=== PATIENT | female | born 1955 | race Caucasian/White ===

== ENCOUNTER 2020-09-21 10:08 | Outpatient (CLI) | payer BC, SELFPAY ==
--- NOTE | ~2020-09-21 | CT_ITS ---
EXAMINATION: CT soft tissue neck w con EXAM DATE: 09/21/2020 10:46 INDICATION: Lymphadenopathy in left anterior neck. TECHNIQUE: Spiral CT of the neck was performed following intravenous injection of 75 mL Omnipaque 350 . Axial, coronal and sagittal images were reviewed. The dose-length product (DLP) for this examinat ion was 245.09 mGy-cm. The exposure was tailored according to patient size (auto mA exposure control ), and iterative reconstruction (ASIR) was used as additional dose reduction technique. There is no prior study for comparison. FINDINGS: There is an externally placed marker left lateral aspect of the neck. No pathologically enl arged lymph nodes or mass deep to this. Lower down in the left medial supraclavicular region there is a lymph node measuring 8 x 10 mm, upper limits of normal in size. This is the largest lymph node selena ntified. The thyroid gland is unremarkable. The submandibular and parotid glands are symmetric. The superi or mediastinum is unremarkable. The airway is unremarkable. Parapharyngeal and pre-glottic fat pl anes are preserved. Carotid arteries widely patent. The orbits are unremarkable. Visualized sinu ses and mastoid air cells are well aerated. Small amount of apical postinfectious residua. Moderat e disc disease at C5-6. Moderate left facet arthropathy C3-4 and C4-5. Hemangioma within the 3 verteb ral body. IMPRESSION: Left supraclavicular lymph node upper limits of normal in size. No pathologically enlarg ed lymph nodes. Reviewed, dictated and finalized at location A. IMPRESSION: Left supraclavicular lymph node upper limits of normal in size. No pathologically enlarged lymph nodes.
[2020-09-21 10:35] LABS: Estimated Glomerular Filt Rate > 60
== END 2020-09-21 10:09 | disposition home or self-care (01) ==
PROVIDERS: PCP Family Medicine Adolescent Medicine; Visit Provider Family Medicine Adolescent Medicine
DX: R59.0 Localized enlarged lymph nodes (principal)
CPT/HCPCS: 70491; Q9967

== ENCOUNTER 2021-06-12 15:42 | Emergency (ER) | payer BC, SELFPAY ==
--- NOTE | 2021-06-12 15:44 | ED.URI ---
HPI - URI/Sore Throat General Chief Complaint: Upper Respiratory Infection Stated Complaint: Congestion,Sore Throat Time Seen by Provider: 06/12/21 15:56 Source: patient and RN notes reviewed Mode of arrival: ambulatory Limitations: no limitations History of Present Illness HPI Narrative: 65-year-old female presents with concern for runny nose, nasal congestion, sore throat, and sneezing. She reports she has been vaccinated for Covid. She reports exposure to family members with cold symptoms, none of them have been diagnosed with Covid. She is concerned for Covid. She denies body aches, chills, sweats, nausea, vomiting, diarrhea, loss of taste and smell. MD elicited complaint: sore throat and nasal congestion Related Data Home Medications Medication Instructions Recorded Confirmed rosuvastatin mg 06/12/21 Allergies Allergy/AdvReac Type Severity Reaction Status Date / Time No Known Allergies Allergy Unknown Verified 11/11/16 10:50 Review of Systems Review of Systems: CONSTITUTIONAL: Denies malaise, chills, sweats, or fever. EYES: Denies visual changes, redness, or discharge. ENT: Reports rhinorrhea, congestion, sneezing, sore throat. Denies sinus pain, otalgia and CARDIOVASCULAR: Denies chest pain, palpitations, or edema. RESPIRATORY: Denies cough. Denies dyspnea. GASTROINTESTINAL: Denies abdominal pain, nausea, vomiting, diarrhea SKIN: Denies rash or itching. MUSCULOSKELETAL: Denies myalgia. NEUROLOGIC: Denies headache. All systems reviewed & are unremarkable except as noted in HPI and below PMFSH Comments At time of signature, agree with nursing past medical, surgical, social and family history. There is no relevant family history pertinent to the presenting complaint Exam Narrative: GENERAL: Well-appearing, well-nourished, and in no acute distress. HEAD: Normocephalic EYES: PERRLA, conjunctivae clear ENT: Nares clear, turbinates clear discharge. Mucous membranes moist. TM pearly gifford with dull light reflex bilaterally; no tragal tenderness. Oropharynx not erythematous without lesions. Tonsils not enlarged and without exudate, no drooling, no hoarseness, no trismus, uvula midline. NECK: Supple. No lymphadenopathy CHEST: Clear to auscultation, breath sounds equal. No wheezing, rhonchi, rales, or stridor. No respiratory distress, speaks in full sentences. HEART: Regular rate and rhythm. No murmur heard. SKIN: Warm, dry, no rash. NEURO: Alert and oriented x3. PSYCH: Normal mood and affect Course Course Emergency Course: Patient is aware of diagnosis, understands and agrees to treatment plan. Anticipatory guidance given. Patient agrees to follow-up as directed and is aware of reasons to seek care at the emergency department. Portions of this record may have been created with voice recognition software Vital Signs Vital signs: Reviewed. MDM - URI/Sore Throat MDM Narrative Medical decision making narrative: Differential diagnosis considered: Osborne virus, strep pharyngitis, allergic rhinitis, upper respiratory tract infection, sinusitis, rhinosinusitis, nasopharyngitis. viral pharyngitis, otitis media, otitis externa, pneumonia, bronchitis, viral cough syndrome, viral syndrome, and influenza. Exam findings show no acute concerns or changes; patient is non-toxic appearing and is in no distress. Patient is appropriate for outpatient treatment and follow-up. Lab Data Attestation: I reviewed the patient's lab results. Critical Care Time Critical Care Time Critical Care Time: No Discharge Plan Discharge Clinical Impression: Upper respiratory infection Qualifiers: URI type: unspecified viral URI Qualified Code(s): J06.9 - Acute upper respiratory infection, unspecified Patient Disposition: Home, Self-Care Condition: Stable Instructions: Upper Respiratory Infection (ED) Additional Instructions: Your rapid Covid test is negative. A rapid Covid test may have a false negative. If you develop new symptoms
[2021-06-12 15:50] VITALS: BP 117/88; PULSE 71; RESP 16; TEMP 37.1; O2SAT 100
== END 2021-06-12 16:28 | disposition home or self-care (01) ==
PROVIDERS: Emergency Provider Nurse Practitioner; PCP Family Medicine Adolescent Medicine
DX: J06.9 Acute upper respiratory infection, unspecified (principal)
CPT/HCPCS: 99213; G0463

== ENCOUNTER 2021-10-28 10:01 | Emergency (ER) | payer MEDICARE, SELFPAY ==
[2021-10-28 10:26] VITALS: BP 117/69; PULSE 71; RESP 16; TEMP 37; O2SAT 99
--- NOTE | 2021-10-28 10:44 | ED.GENADULT ---
HPI - General Adult General Chief complaint: Upper Respiratory Infection Stated complaint: khanh,low grade fever Source: patient Mode of arrival: ambulatory Limitations: no limitations History of Present Illness HPI narrative: Patient presents for evaluation of sinus symptoms. One week ago she developed sinus congestion, clear drainage and fever. Few days prior to that time she had spent time with her granddaughter who had similar symptoms. Two days ago she lost (her) voice . She states in the past 24 hr she has developed a thick mucopurulent discharge from her nares. She reports bilateral frontal and maxillary sinus pressure. No chills, nausea, vomiting, cough, SOB, diarrhea, sore throat or otalgia. She was taking zyrtec and tylenol but ran out of zyrtec. She does not smoke. She has received COVID vaccinations and booster x 1. No additional complaints or concerns. Related Data Allergies Allergy/AdvReac Type Severity Reaction Status Date / Time No Known Allergies Allergy Unknown Verified 10/28/21 10:26 Review of Systems Review of Systems: CONSTITUTIONAL: Reports fever, chills, or sweats. EYES: Denies visual changes, redness, or discharge. ENT: Reports sinus congestion, thick mucopurulent discharge from nares, bilateral frontal and maxillary sinus pressure CARDIOVASCULAR: Denies chest pain, palpitations, or edema. RESPIRATORY: Denies cough or dyspnea. GASTROINTESTINAL: Denies abdominal pain, nausea, vomiting, or diarrhea. GENITOURINARY: Denies dysuria or hematuria. SKIN: Denies rash or itching. MUSCULOSKELETAL: Denies back pain, joint pain, or myalgia. NEUROLOGIC: Denies headache, numbness, dizziness, or weakness. PSYCHIATRIC: Denies anxiety or depression. FORMERLY [facility] Past Medical History Medical History History of breast cancer Hyperlipidemia Surgical History Surgical History History of lumpectomy Family History Family History Mother Renal failure Father Heart disease Diabetes mellitus Social History Social History Smoking status: Never smoker Substance use: never Living arrangements: with family Gender identity (if verbalized by the patient): Female Spiritual care concerns: No Exam Narrative: GENERAL: Well-appearing, well-nourished, and in no acute distress. HEAD: Normocephalic, atraumatic. EYES: PERRLA and EOMI. ENT: Nares clear, no rhinorrhea or epistaxis. Mucous membranes moist. Oropharynx without tonsillar hypertrophy exudate or other lesions. Bilateral frontal and maxillary sinus tenderness. Bilateral TMs pearly gifford nonbulging. NECK: Supple. No adenopathy or masses. No carotid bruits or JVD CHEST: Clear to auscultation. No respiratory distress. No wheezes rales or rhonchi HEART: Regular rate and rhythm. No murmur heard. Normal peripheral pulses. ABDOMEN: Soft, nontender, nondistended, normal active bowel sounds. EXTREMITIES: Normal range of motion. No edema. SKIN: Warm, dry, no rash. NEURO: No focal deficits. Alert and oriented x3. PSYCH: Normal mood and affect. Course Course Emergency Course: This is a 66-year-old female who presented with complaints of fever, mucopurulent discharge from her nares which is progressively worsening from baseline symptoms of clear discharge. She meets criteria for ABRS based on presence of fever, duration of time with which she has been symptomatic, and presence of mucopurulent discharge. Will dc with augmentin. She has taken this before and tolerated well. Sudafed and flonase may help. She should follow up outpatient for further evaluation and treatment and return for worsening symptoms. Pt in agreement with plan of care. Level of Care: Express Care Visit Vital Signs Vital signs: Vital Signs Temperat
== END 2021-10-28 10:48 | disposition home or self-care (01) ==
PROVIDERS: Emergency Provider Nurse Practitioner; PCP Family Medicine Adolescent Medicine
DX: J32.9 Chronic sinusitis, unspecified (principal); B96.89 Other specified bacterial agents as the cause of diseases classified elsewhere; E78.5 Hyperlipidemia, unspecified; Z85.3 Personal history of malignant neoplasm of breast
CPT/HCPCS: 99213; G0463

== ENCOUNTER 2021-11-10 10:02 | Emergency (ER) | payer MEDICARE, SELFPAY ==
--- NOTE | ~2021-11-10 | XR_ITS ---
EXAMINATION: XR chest 2V DATE: 11/10/2021 10:38 INDICATION: 4 days of cough. TECHNIQUE: PA and lateral views of the chest were obtained. COMPARISON: None FINDINGS: The lungs are clear with no focal airspace opacities, pulmonary edema, pleural effusion or pneumothor ax. The cardiomediastinal silhouette is normal. Postoperative change of prior left breast lumpectomy and axillary lymph node dissection with asymmetric decreased size of the left breast and several surg ical clips at the left axilla. Mild thoracic spondylosis. IMPRESSION: 1. No acute cardiopulmonary disease. Reviewed, dictated and finalized at location A.
[2021-11-10 10:08] VITALS: BP 132/88; PULSE 87; RESP 18; TEMP 36.6; O2SAT 100
--- NOTE | 2021-11-10 10:25 | ED.GENADULT ---
HPI - General Adult General Chief complaint: Upper Respiratory Infection Stated complaint: fever,congestion Source: patient Mode of arrival: ambulatory Limitations: no limitations History of Present Illness HPI narrative: Patient presents for evaluation of respiratory symptoms. I saw her here on 10/28/2021 and diagnosed her with ABRS. She received a script for augmentin which she took as directed. Nine days ago she developed a rash and diarrhea. She called her PCP and her medication was changed from augmentin to levaquin that day. Five days ago she felt as though her symptoms were getting better. Three days ago she developed a fever, productive cough of yellow sputum and clear rhinorrhea. No nausea, vomiting, diarrhea. She has received both doses of her COVID vaccination and booster. She did not receive a flu shot this season. Related Data Allergies Allergy/AdvReac Type Severity Reaction Status Date / Time amoxicillin [From Augmentin] Allergy Rash Verified 11/10/21 10:13 clavulanic acid Allergy Rash Verified 11/10/21 10:13 [From Augmentin] Penicillins Allergy Hives Verified 11/10/21 10:14 Review of Systems Review of Systems: CONSTITUTIONAL: Reports fever. Denies chills, or sweats. EYES: Denies visual changes, redness, or discharge. ENT: reports rhinorrhea and scratchy throat . Denies otalgia CARDIOVASCULAR: Denies chest pain, palpitations, or edema. RESPIRATORY: Reports productive cough of yellow sputum. Denies SOB GASTROINTESTINAL: Denies abdominal pain, nausea, vomiting, or diarrhea. GENITOURINARY: Denies dysuria or hematuria. SKIN: Denies rash or itching. MUSCULOSKELETAL: Denies back pain, joint pain, or myalgia. NEUROLOGIC: Denies headache, numbness, dizziness, or weakness. PSYCHIATRIC: Denies anxiety or depression. COUNT INCLUDES THE [facility] Past Medical History Medical History History of breast cancer Hyperlipidemia Surgical History Surgical History History of lumpectomy Family History Family History Mother Renal failure Father Heart disease Diabetes mellitus Social History Social History Smoking status: Never smoker Substance use: never Gender identity (if verbalized by the patient): Female Spiritual care concerns: No Exam Narrative: GENERAL: Well-appearing, well-nourished, and in no acute distress. HEAD: Normocephalic, atraumatic. EYES: PERRLA and EOMI. ENT: Nares clear, no rhinorrhea or epistaxis. Mucous membranes moist. Oropharynx without tonsillar hypertrophy exudate or other lesions. Bilateral TMs pearly gifford nonbulging NECK: Supple. No adenopathy or masses. No carotid bruits or JVD CHEST: Clear to auscultation. No respiratory distress. No wheezes rales or rhonchi HEART: Regular rate and rhythm. No murmur heard. Normal peripheral pulses. ABDOMEN: Soft, nontender, nondistended, normal active bowel sounds. EXTREMITIES: Normal range of motion. No edema. SKIN: Warm, dry, no rash. NEURO: No focal deficits. Alert and oriented x3. PSYCH: Normal mood and affect. Course Course Emergency Course: This is a 66-year-old female who presented with complaints of cough and fever after recently being treated for ABRS. Influenza, COVID, strep are negative. Chest x-ray negative. Exam is consistent with acute viral syndrome. She may benefit from sycn-ynu-[id number] agents and I provided her a list of medications which may assist with her symptoms. She should follow-up outpatient for further evaluation and treatment return for worsening symptoms. Patient agreed with plan of care. Level of Care: Express Care Visit Vital Signs Vital signs: Vital Signs Temperature 36.6 C 11/10/21 10:08 Pulse Rate 87 11/10/21 10:08 Respiratory Rate 18 11/10/21 10:08 Bl
== END 2021-11-10 11:11 | disposition home or self-care (01) ==
PROVIDERS: Emergency Provider Nurse Practitioner
DX: B34.9 Viral infection, unspecified (principal); Z20.822 Contact with and (suspected) exposure to COVID-19; E78.5 Hyperlipidemia, unspecified; Z85.3 Personal history of malignant neoplasm of breast
CPT/HCPCS: 71046; 87081; 87426; 87804; 87880; 99213; C9803; G0463

== ENCOUNTER 2024-03-27 07:34 | Outpatient (CLI) | payer MEDICARE, SELFPAY ==
--- NOTE | ~2024-03-27 | XR_ITS ---
EXAMINATION: [id number] DATE: 03/27/2024 07:52 INDICATION: Right chest wall pain post fall TECHNIQUE: A frontal inspiratory view of the chest and 3 views of the right ribs were obtained. COMPARISON: 11/10/2021 FINDINGS: No rib fractures identified. Lungs remain clear with no focal airspace opacities, pulmonary edema, pl eural effusion or pneumothorax. Cardiomediastinal silhouette is normal. Moderate right glenohumeral o steoarthritis. IMPRESSION: 1. No rib fracture or acute cardiopulmonary disease. Reviewed, dictated and finalized at location A.
== END 2024-03-27 07:35 | disposition home or self-care (01) ==
PROVIDERS: PCP Family Medicine Adolescent Medicine; Visit Provider Family Medicine Adolescent Medicine
DX: R07.89 Other chest pain (principal); W19.XXXA Unspecified fall, initial encounter
CPT/HCPCS: 71101

== ENCOUNTER 2024-05-08 17:50 | Emergency (ER) | payer MEDICARE, SELFPAY ==
--- NOTE | ~2024-05-08 | XR_ITS ---
EXAMINATION: XR chest 2V Exam Date/Time: 05/08/2024 18:33 FUNERAL ARRANGEMENT DIRECTOR HISTORY: syncopal episode Comparison: 11/10/2021. RESULT: Lines, tubes, and devices: Left axillary clips. Lungs and pleura: Clear. Cardiomediastinal silhouette: Stable. Other: No acute osseous or upper abdominal finding. Status post left lumpectomy. IMPRESSION: No acute cardiopulmonary process. Reviewed, dictated and finalized at location K. RAL ARRANGEMENT DIRECTOR
--- NOTE | ~2024-05-08 | CT_ITS ---
EXAMINATION: CT abdomen pelvis w con DATE: 05/08/2024 20:45 INDICATION: R CVA tenderness, R lower rib tenderness, syncope TECHNIQUE: Computed tomography (CT) of the abdomen and pelvis was performed with 100 mL Omnipaque-350 intravenous contrast. Automated exposure control and iterative reconstruction technique were employe d. The dose-length product was 178.86 mGy-cm. COMPARISON: None. FINDINGS: Lower thorax: Unremarkable Liver: Normal. Biliary/Gallbladder: Gallbladder is normal. No bile duct dilation. Pancreas: No mass or duct dilation. Spleen: Normal. Adrenals:No mass. Kidneys: No suspicious mass, obstructing stone, or hydronephrosis. GI tract: Mild distal esophageal and gastric wall edema. No small or large bowel dilation. Normal starr endix. Mesentery/Peritoneum: No ascites, mass, or free air. Retroperitoneum: No mass. Pelvis: Pelvic organs are within normal limits. Soft Tissues: Soft tissues and body wall unremarkable. Bones: No acute osseous finding. IMPRESSION: Mild esophagitis/gastritis. Reviewed, dictated and finalized at location K. ING TOOL SUPERVISOR IMPRESSION: Mild esophagitis/gastritis.
--- NOTE | 2024-05-08 18:07 | ECG_ITS ---
Test Date: 2024-05-08 18:31:40 Measurements Intervals [place] Rate: 74 P: 75 [place]: 161 QRS: 28 QRSD: 99 T: 49 QT: 374 QTc: 417 Interpretive Statements SINUS RHYTHM POSSIBLE LEFT ATRIAL ENLARGEMENT BASELINE ARTIFACT- I, II, III, AVR, AVL, AVF, V3 BORDERLINE ECG No previous ECG available for comparison Electronically Signed On 05-08-2024 20:48:40 GRIEVANCE COORDINATOR by Emiliano Pagan D.O.
[2024-05-08 18:10] VITALS: BP 131/72; PULSE 74; RESP 14; TEMP 36.9; O2SAT 99
[2024-05-08 18:38] LABS: Basophils Percent Auto 0.2 % (0.2-1.2); Eosinophils Absolute Auto 0.1 K/mm3 (0-0.3); Eosinophils Percent Auto 0.8 % (0-4.4); Hematocrit 41.5 % (37.0-47.0); Hemoglobin 13.7 g/dL (12.0-15.0); Immature Granulocyte Absolute 0.05 K/mm3 (0.00-0.031); Immature Granulocyte Percent A 0.3 % (0-0.5); Lymphocytes Absolute Auto 9.27 K/mm3 (0.9-3.2); Lymphocytes Percent Auto 57.8 % (18.3-44.2); Mean Corpuscular Hemoglobin 31.4 pg (26-34); Mean Platelet Volume 9.6 fl (7.4-10.4); Monocytes Absolute Auto 0.7 K/mm3 (0.1-0.6); Monocytes Percent Auto 4.5 % (2.6-8.5); Neutrophils Absolute Auto 5.8 K/mm3 (1.3-6.7); Neutrophils Percent Auto 36.4 % (45.5-73.1); Nucleated Red Blood Cells Perc 0.1 % (0.0-0.2); Platelet Count Result 261 k/mm3 (150-375); Red Blood Count 4.37 M/mm3 (4.2-5.4); Red Cell Distribution Width 12.3 % (11.5-14.5)
[2024-05-08 18:47] LABS: Alanine Aminotransferase 27 U/L (6-35); Albumin Level 4.9 g/dL (3.5-5.1); Alkaline Phosphatase 75 U/L (38-126); Anion Gap 7 mmol/L (4-12); Aspartate Amino Transferase 33 U/L (14-36); Bilirubin,Total 0.5 mg/dL (0.2-1.3); Blood Urea Nitrogen 16 mg/dL (7-17); Calcium 9.8 mg/dL (8.4-10.2); Carbon Dioxide 33 mmol/L (22-30); Chloride 98 mmol/L (98-107); Estimated CRCL calculation 69 ml/min; Estimated Glomerular Filt Rate > 60; Glucose 122 mg/dL (65-110); Potassium 4.1 mmol/L (3.4-5.0); Sodium 138 mmol/L (137-145)
[2024-05-08 19:03] VITALS: BP 117/66; PULSE 74
[2024-05-08 19:04] VITALS: BP 125/74; PULSE 80
[2024-05-08 19:05] VITALS: BP 128/84; PULSE 84
--- NOTE | 2024-05-08 19:14 | ED.DIZZY ---
HPI - Dizziness General Chief Complaint: Syncope Stated Complaint: syncopal episode Time Seen by Provider: 05/08/24 18:43 Source: patient Mode of arrival: ambulatory Limitations: no limitations History of Present Illness HPI Narrative: This is a 68-year-old female who presents to the ED for chief complaint of syncopal episode that occurred while at religious this evening around 1700. Patient reports that she was standing during religious and started to feel flushed and dizzy. Reports that she felt very hot and felt like she might pass out. The next thing she knew she was waking up on the religious pew with people surrounding her. This took a few seconds for her to come to. They report that she did not fall or hit her head. She does report that she is having right flank/right rib pain following this syncopal event but no other sites of pain. States that she does not feel dizzy anymore. States that she has had syncopal episodes like this before with heat exhaustion. Denies for previous cardiac history. Denies recent illness, fevers, chills, abdominal pain, nausea, vomiting, abnormal bleeding. Denies preceding chest pain, palpitations, shortness of breath or cough. Related Data Home Medications Medication Instructions Recorded Confirmed qyiafcow-ntm-MG 200 mcg-vit K 100 cap PO 10/16/22 02/18/24 mcg-lycop 500 [id number] capsule (Daily Multivitamin) Allergies Allergy/AdvReac Type Severity Reaction Status Date / Time amoxicillin [From Augmentin] Allergy Rash Verified 05/08/24 18:33 clavulanic acid Allergy Rash Verified 05/08/24 18:33 [From Augmentin] Penicillins Allergy Hives Verified 05/08/24 18:33 Review of Systems Review of Systems: All systems as dictated in HPI [facility] Past Medical History Medical History (Updated 05/09/24 @ 00:00 by Jennyfer Jones) History of breast cancer (2010) Surgical History Surgical History (Updated 10/15/22 @ 06:09 by Rigoberto Jc MD) History of lumpectomy (2010) Family History Family History Mother Renal failure Father Heart disease Diabetes mellitus Social History Social History Smoking status: Never smoker Substance use: never Living arrangements: with family Gender identity (if verbalized by the patient): Female Spiritual care concerns: No Exam Narrative: GENERAL: Well-appearing, well-nourished, and in no acute distress. HEAD: Normocephalic, atraumatic. EYES: PERRLA and EOMI. ENT: Nares clear, no rhinorrhea or epistaxis. Mucous membranes moist. Oropharynx without tonsillar hypertrophy exudate or other lesions. NECK: Supple. No adenopathy or masses. CHEST: Chest wall tenderness over the right posterior ribs. No respiratory distress. Clear to auscultation. No wheezes rales or rhonchi HEART: Regular rate and rhythm. No murmur heard. Normal peripheral pulses. ABDOMEN: Right flank tenderness. . Negative flank flank tenderness. Soft, nontender, nondistended, normal active bowel sounds. MSK: Normal range of motion. No edema. SKIN: Warm, dry, no rash. NEURO: Alert and oriented x4. No focal deficits. PSYCH: Normal mood and affect. Course Vital Signs Vital signs: Vital Signs Temperature 98.4 F 05/08/24 18:10 Pulse Rate 74 05/08/24 18:10 Respiratory Rate 14 05/08/24 18:10 Blood Pressure 131/72 05/08/24 18:10 Pulse Oximetry 99 05/08/24 18:10 Oxygen Delivery Room Air 05/08/24 18:10 Temperature 98.2 F 05/08/24 21:20 Pulse Rate 79 05/08/24 21:20 Respiratory Rate 20 05/08/24 21:20 Blood Pressure 132/75 05/08/24 21:20 Pulse Oximetry 98 05/08/24 21:20 Oxygen Delivery Room Air 05/08/24 18:10 MDM - Dizziness MDM Narrative Medical decision making narrative: This is a 68 yo female who presents to the ED for chief complaint of syncopal episode and subsequent right flank pain. Vitals are normal. Exam shows right flank tenderness as above. She is otherwise well-appearing on exam. Orthostatic vitals are normal. Lab work shows elevated white count of 16.0. CMP unremarkable overall. Urinalysis concerning 2+ blood, 2+ leuk esterase, 21-50 rbc's and 21-50 wbc's. Suspect acute urinary tract infection and ordering CT scan to rule out stone//rib fracture CT abdomen and pelvis with IV contrast shows mild esophagitis/gastritis but no other acute findings. Patient was given Rocephin, fluids and Toradol here in the ED. She is well-appearing on re-evaluation. Stable for discharge for reassuring treatment of UTI. Rx for cefdinir given. Suspect syncopal episode today was vasovagal event with prolonged standing Patient will be discharged in stable condition. Supportive measures discussed and return precautions given. Patient is understanding and agreeable with plan for discharge with PCP follow-up. Lab Data 05/08/24 18:34 05/08/24 18:34 Labs: Lab Results 05/08/24 05/08/24 Range/Units 18:34 19:23 WBC 16.0 H (4.5-10.0) K/mm3 RBC 4.37 (4.2-5.4) M/mm3 Hgb 13.7 (12.0-15.0) g/dL Hct 41.5 (37.0-47.0) % MCV 95.0 (80-100) fl MCH 31.4 (26-34) pg MCHC 33.0 (32-36) g/dl RDW 12.3 (11.5-14.5) % Plt Count 261 (150-375) k/mm3 MPV 9.6 (7.4-10.4) fl Immature Gran % (Auto) 0.3 (0-0.5) % Neut % (Auto) 36.4 L (45.5-73.1) % Lymph % (Auto) 57.8 H (18.3-44.2) % [place] % (Auto) 4.5 (2.6-8.5) % Eos % (Auto) 0.8 (0-4.4) % Baso % (Auto) 0.2 (0.2-1.2) % Lymph # (Auto) 9.27 H (0.9-3.2) K/mm3 [place] # (Auto) 0.7 H (0.1-0.6) K/mm3 Eos # (Auto) 0.1 (0-0.3) K/mm3 Baso # (Auto) 0.0 (0.0-0.1) K/mm3 Abs Immat Gran (auto) 0.05 H (0.00-0.031) K/mm3 Absolute Neuts (auto) 5.8 (1.3-6.7) K/mm3 Absolute Nucleated RBC 0.020 H (0.0-0.012) K/mm3 Nucleated RBC % 0.1 (0.0-0.2) % Sodium 138 (137-145) mmol/L Potassium 4.1 (3.4-5.0) mmol/L Chloride 98 (98-107) mmol/L Carbon Dioxide 33 H (22-30) mmol/L Anion Gap 7 (4-12) mmol/L BUN 16 (7-17) mg/dL Creatinine 0.50 L (0.7-1.0) mg/dL Estim Creat Clear Calc 69 ml/min Estimated GFR > 60 (59 - ) Glucose 122 H (65-110) mg/dL Calcium 9.8 (8.4-10.2) mg/dL Total Bilirubin 0.5 (0.2-1.3) mg/dL AST 33 (14-36) U/L ALT 27 (6-35) U/L Alkaline Phosphatase 75 (38-126) U/L Total Protein 8.0 (6.3-8.2) g/dL Albumin 4.9 (3.5-5.1) g/dL Urine Color Yellow (Yellow) Urine Appearance Turbid H (Clear) Urine pH 7.0 (5.0-9.0) Ur Specific [place] 1.023 (1.001-1.035) Urine Protein Trace (Negative) mg/dL Urine Glucose (UA) Negative (Negative) mg/dL Urine Ketones Trace H (Negative) mg/dL Ur Blood (Man) 2+ H (Negative) Urine Nitrate Negative (Negative) Urine Bilirubin Negative (Negative) Urine Urobilinogen 1.0 (<2.0) mg/dL Add Ur Microanalysis Reviewed Leukocyte Esterase Rfl 2+ H (Negative) BRIGID/UL Urine RBC 21-50 H (0-2) /hpf Urine WBC 21-50 H (0-3) /hpf Ur Squamous Epith Cells Occasional (Few) /hpf Amorphous Sediment Few H (None) Urine Bacteria None seen /hpf Urine Casts >20 Urine Mucus Present /lpf Discharge Plan Discharge Clinical Impression: Acute UTI, Vasovagal syncope Patient Disposition: Home, Self-Care Condition: Stable Instructions: Antibiotic Form Additional Instructions: Your exam and imaging today do show evidence of UTI. There is mild dehydration as well. Make sure they stay well hydrated. Take antibiotics as prescribed follow-up closely with your doctor on this. If you have any new or worsening symptoms please return to the ER for further evaluation. Prescriptions: New cefdinir 300 mg capsule 300 mg PO Q12H 7 Days Qty: 14 0RF No Action Daily Multivitamin 200-100-500 mcg capsule PO rosuvastatin 20 mg tablet See Rx Instructions .ROUTE .COMPLEX Qty: 90 0RF Dose Instruction: Take 1 tablet by mouth once daily Rx Instructions: Take 1 tablet by mouth once daily Follow-up/Referrals: Rigoberto Jc MD [Primary Care Provider] - Time of Disposition: 21:12
[2024-05-08] MEDS: KETOROLAC 15 MG/ML VIAL (*BKC) IV PUSH (19:24)
[2024-05-08] MEDS: SODIUM CHLORIDE 0.9% IV 1,000 ML 999 ML IV CONT (19:24)
[2024-05-08 19:28] VITALS: BP 126/75; PULSE 72; RESP 14; O2SAT 100
[2024-05-08 19:51] LABS: Add Urine Microscopic? YES; Appearance Urine Turbid (Clear); Bacteria Urine None Seen /hpf; Bilirubin Urine Negative (Negative); Blood Urine 2+ (Negative); Color Urine Yellow (Yellow); Glucose Urine UA Negative (Negative); Ketones Urine Trace mg/dL (Negative); Leukocyte Esterase Ur 2+ LEU/UL (Negative); Mucus Urine Present /lpf; Need Manual Microscopic Reviewed; Nitrate Urine Negative (Negative); Non Pathogenic Casts >20; Protein Urine Trace mg/dL (Negative); RBC Urine 21-50 /hpf (0-2); Specific Grav Ur 1.023 (1.001-1.035); Squamous Epithelial Cell Urine Occasional /hpf (Few); WBC Urine 21-50 /hpf (0-3)
[2024-05-08 19:54] LABS: Amorphous Sediment Urine Few
[2024-05-08 21:20] VITALS: BP 132/75; PULSE 79; RESP 20; TEMP 36.8; O2SAT 98
== END 2024-05-08 21:30 | disposition home or self-care (01) ==
PROVIDERS: Emergency Medicine; Emergency Provider Physician Assistant; PCP Family Medicine Adolescent Medicine
DX: N39.0 Urinary tract infection, site not specified (principal); R55 Syncope and collapse; Z85.3 Personal history of malignant neoplasm of breast; Z79.899 Other long term (current) drug therapy; R94.31 Abnormal electrocardiogram [ECG] [EKG]; K20.90 Esophagitis, unspecified without bleeding; K29.70 Gastritis, unspecified, without bleeding
CPT/HCPCS: 36415; 71046; 74177; 80053; 81001; 85025; 87086; 93005; 96361; 96365; 96375; 99284; J0696; J1885; J7030; Q9967

== ENCOUNTER 2024-08-12 15:46 | Outpatient (CLI) | payer MEDICARE, SELFPAY ==
--- NOTE | ~2024-08-12 | MM_ITS ---
EXAMINATION: MM screening james BI w agueda HISTORY: Screening TECHNIQUE: Craniocaudal and mediolateral oblique 3-D tomosynthesis images were obtained and synthetic 2-D images were generated. CAD analysis was submitted and interpreted. COMPARISON: Comparison to multiple prior studies sequentially, with oldest reviewed study dated 10/10. BREAST PARENCHYMAL COMPOSITION: Dense: The breasts are heterogeneously dense, which may obscure small masses FINDINGS: There is no evidence of suspicious mass, calcification, or architectural distortion to sugg est malignancy in either breast. There has been no suspicious interval change. IMPRESSION: 1. No mammographic evidence of malignancy. 2. Recommend routine screening mammography in one year. BI-RADS Category 1: Negative Reviewed, dictated and finalized at location B. [employer] SERV[employer]IST
== END 2024-08-12 15:47 | disposition home or self-care (01) ==
PROVIDERS: PCP Family Medicine Adolescent Medicine; Visit Provider Obstetrics & Gynecology
DX: Z12.31 Encounter for screening mammogram for malignant neoplasm of breast (principal)
CPT/HCPCS: 77063; 77067

== ENCOUNTER 2024-12-27 09:42 | Outpatient (CLI) | payer MEDICARE, SELFPAY ==
--- NOTE | ~2024-12-27 | US_ITS ---
US soft tissue lower back 12/27/2024 09:54 Indication: Localized swelling with palpable area in the left lower back for 10 years Procedure: High-resolution Limited ultrasound of the left lower back in the area of palpable concern Comparison: No prior studies for comparison. Findings: In the area of palpable concern there is an oval parallel oriented hypoechoic mass with hor izontal striations and minimal internal vascularity. There is no significant posterior features. This mass measures 6.4 x 6.1 x 2.4 cm, most compatible with benign lipoma. Sarcomatous degeneration less favored. Impression: 1: Probable benign lipoma in the area palpable concern. Sarcomatous degeneration less favored. Consid er excisional biopsy as clinically warranted. Reviewed, dictated and finalized at location A. Impression: 1: Probable benign lipoma in the area palpable concern. Sarcomatous degeneratio n less favored. Consider excisional biopsy as clinically warranted.
== END 2024-12-27 09:43 | disposition home or self-care (01) ==
PROVIDERS: PCP Surgery; Visit Provider Nurse Practitioner Family
DX: R22.2 Localized swelling, mass and lump, trunk (principal); M54.50 Low back pain, unspecified
CPT/HCPCS: 76705

== ENCOUNTER 2025-01-11 13:33 | Emergency (ER) | payer MEDICARE, SELFPAY ==
--- NOTE | ~2025-01-11 | XR_ITS ---
EXAM/ PROCEDURE: XR hand LT min 3V - 01/11/2025 13:53 CDT HISTORY: 69 years old Female with fall yesterday, pain, swelling metacarpals Lt hand COMPARISON: None available TECHNIQUE: Three view(s) FINDINGS/ IMPRESSION: There are no fractures or dislocations.Joint space narrowing, subchondral sclerosis, subchondral cyst formation and osteophyte formation, compatible with gdkb-av-hcqwfavw osteoarthritis. Reviewed, dictated and finalized at location A.
[2025-01-11 13:47] VITALS: BP 122/70; PULSE 68; RESP 16; TEMP 36.5; O2SAT 100
--- NOTE | 2025-01-11 15:12 | ED_ITS ---
HPI - Extremity Injury (Upper) General Chief Complaint: Extremity Injury, Upper Stated Complaint: Fall, Left Hand Injury Time Seen by Provider: 01/11/25 14:00 Source: patient and RN notes reviewed Mode of arrival: ambulatory Limitations: no limitations History of Present Illness HPI narrative: 69-year-old female presents Express Care complaining of left hand injury. Patient says she had a ground level fall yesterday. Patient was walking on the side of her rule that the country and she was walking to the side of the road to get out of the way of another vehicle when she tripped in the mud and fell with her left arm hyperextending injuring her left hand. Patient is here head, loss of conscious, neck pain, back pain, any other injuries. 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 Patient reports swelling and pain to the middle of her left hand. Patient has been trying ice without any relief. Related Data Home Medications ?Medication ?Instructions ?Recorded ?Confirmed ?Last Taken ?Type cmeesdcd-qfi-FA 200 mcg-vit K 100 cap PO 10/16/22 01/07/25 Unknown History mcg-lycop 500 [id number]-[id number]-K05 capsule (Daily Multivitamin) Allergies Allergy/AdvReac Type Severity Reaction Status Date / Time amoxicillin (From Augmentin) Allergy Rash Verified 01/11/25 13:50 clavulanic acid (From Allergy Rash Verified 01/11/25 13:50 Augmentin) Penicillins Allergy Hives Verified 01/11/25 13:50 Review of Systems Review of Systems: CONSTITUTIONAL: Denies fever, chills, or sweats. EYES: Denies visual changes, redness, or discharge. ENT: Denies rhinorrhea, congestion, sore throat, or otalgia. CARDIOVASCULAR: Denies chest pain, palpitations, or edema. RESPIRATORY: Denies cough or dyspnea. GASTROINTESTINAL: Denies abdominal pain, nausea, vomiting, or diarrhea. GENITOURINARY: Denies dysuria or hematuria. SKIN: Denies rash, wound, or itching. MUSCULOSKELETAL: Denies back pain, joint pain, or myalgia. Positive for left hand injury and swelling NEUROLOGIC: Denies headache, numbness, or weakness. PSYCHIATRIC: Denies anxiety or depression. All other systems reviewed are negative, except as documented in HPI. [facility] Past Medical History Medical History History of breast cancer (2010) Surgical History Surgical History History of lumpectomy (2010) Family History Family History Mother Renal failure Father Heart disease Diabetes mellitus Social History Social History Smoking status: Never smoker Substance use: never Do You Feel Safe in your Home?: Yes Lack of Transportation: No Lack of Food: Never True Current Housing: I Have Housing Concerned About Future Housing: No Difficulty Paying Gas/Electric Bills: No Difficulty Paying for Meds: No Currently Unemployed: No Education: Decline to Answer Difficulty w/ Childcare or Family Care: No Living arrangements: with family Gender identity (if verbalized by the patient): Female Spiritual care concerns: No Comments At the time of my signature, I reviewed and agree with the nursing past medical, surgical, social, and family history. There is no relevant family history pertinent to the patient complaint. Exam Narrative: GENERAL: This is a well-nourished, well-developed adult, in no apparent distress. They are non ill-appearing, nontoxic appearing. HEAD: normocephalic, atraumatic. EYES: Sclera clear/white. Vision is grossly intact. Conjunctiva normal. Extraocular movement intact. EARS: External ears normal Hearing grossly intact. NOSE: External nose normal THROAT: Mucous membranes moist NECK: Neck supple CARDIOVASCULAR: Regular rate and rhythm RESPIRATORY: Respiratory rate normal, respiratory effort nonlabored, no respiratory distress NEURO: awake, alert, and oriented to person, place and time. There were no obvious focal neurologic abnormalities. EXTREMITIES: Left hand: Fingers are normal. No obvious deformity,. There is swelling and mild bruising dorsal medial hand. Tenderness to palpation to the area of swelling. Normal wrist flexion, extension, pronation, and supination. Patient is able to wiggle her fingers Capillary refill less than 3 seconds. Left radial Pulse 2 +palpable. Normal sensation. Neurovascular status intact distal injury. Patient down make a fist, stop sign, okay sign, and a thumbs-up sign. Radial and ulnar nerve distribution intact. No snuffbox tenderness. BACK: Nontender without deformity. Course Course Emergency Course: Portions of this record may have been created with voice recognition software Level of Care: Express Care Visit Vital Signs Vital signs: Vital Signs Temperature 97.7 F 01/11/25 13:47 Pulse Rate 68 01/11/25 13:47 Respiratory Rate 16 01/11/25 13:47 Blood Pressure 122/70 01/11/25 13:47 Pulse Oximetry 100 01/11/25 13:47 Temperature 97.7 F 01/11/25 13:47 Pulse Rate 68 01/11/25 13:47 Respiratory Rate 16 01/11/25 13:47 Blood Pressure 122/70 01/11/25 13:47 Pulse Oximetry 100 01/11/25 13:47 Reviewed MDM - Extremity Injury (Upper) MDM Narrative Medical decision making narrative: X-ray left hand negative for any fracture or acute findings. Likely a left hand sprain. Gave patient and Rodrigo wrap for compression. Discussed physical exam findings. Advised supportive measures and signs/symptoms to go to the ER. Pt is appropriate for outpt treatment and f/u. Differential Diagnosis Differential diagnosis: Likely fracture of wrist, fracture of hand and other (Hand sprain, finger sprain of finger fracture) Critical Care Time Critical Care Time Critical Care Time: No Discharge Plan Discharge Clinical Impression: Injury of hand, left Qualifiers: Encounter type: initial encounter Qualified Code(s): S69.92XA - Unspecified injury of left wrist, hand and finger(s), initial encounter Fall Qualifiers: Encounter type: initial encounter Qualified Code(s): W19.XXXA - Unspecified fall, initial encounter Patient Disposition: Home Condition: Stable Instructions: Hand Sprain (ED) Additional Instructions: The x-ray left hand is negative for any fracture or acute findings. Rest and elevate the arm Apply ice 15-20 minute intervals several times a day Keep it wrapped with RODRIGO Motrin 600mg -800mg every 8 hours, alternate with Tylenol 1000mg every 8 hours as needed Follow up with your primary care provider or orthopedist as needed in 1-2 weeks specially if pain persists. Patient Language: Amharic Prescriptions: No Action Daily Multivitamin 200-100-500 mcg capsule PO rosuvastatin 20 mg tablet See Rx Instructions .ROUTE .COMPLEX Qty: 90 1RF Dose Instruction: Take 1 tablet by mouth once daily Rx Instructions: Take 1 tablet by mouth once daily Follow-up/Referrals: Jevon Batista MD [Physician] - Amisha Silva APRN [Primary Care Provider] - Time of Disposition: 14:38
== END 2025-01-11 14:47 | disposition home or self-care (01) ==
PROVIDERS: PCP Nurse Practitioner Family
DX: S69.92XA Unspecified injury of left wrist, hand and finger(s), initial encounter (principal); W01.0XXA Fall on same level from slipping, tripping and stumbling without subsequent striking against object, initial encounter; Z85.3 Personal history of malignant neoplasm of breast
CPT/HCPCS: 73130; 99213; G0463

== ENCOUNTER 2025-04-08 00:04 | Day surgery (SDC) | payer MEDICARE, SELFPAY ==
[2025-03-30 14:38] VITALS: BMI 19.5
--- NOTE | 2025-03-30 14:47 | PC.NURSE ---
[facility] has started construction of its new state of the art ER which will open Spring 2026. With this, we anticipate parking may be a challenge for some our surgical patients and families. Parking spaces are limited but are available for all Surgical, obstetrics, and ER patients sharing this lot. If you arrive and find you are having a hard time finding a parking space, please note that we understand the challenges, please drive around the hospital and park near Hospital Entrance 1. When you enter this entrance, you can ask a volunteer to direct or take you back to the surgical waiting area to check in. We appreciate everyone?s understanding of these expected challenges while we build for your future. Report to the Outpatient Waiting Room, entrance under the green pavilion located off [address], at time __11:30am on date _04/08/25 . Planned Procedure Time: _1:30pm .? Time changes happen often and if your time is changed the preop area will call you the afternoon before. - You and your visitor will be asked to self-screen and do not enter if you have any COVID symptoms. Please call surgeon if you need to reschedule. - A mask is optional within the hospital at this time. Patients may have clear liquids (water, carbonated beverages, clear teas, apple juice) until 3 hours prior to surgery with a maximum of 20 ounces. - No food from midnight until time of surgery and no smoking, or chewing tobacco (or any form of nicotine). No chewing gum, candy or mints.(10:30am) Take only the following medications with a SIP of water on the morning of surgery: __NONE DO NOT STOP ANY OF YOUR OTHER PRESCRIPTION MEDICATIONS PRIOR TO SURGERY EXCEPT THE FOLLOWING Hold all vitamins and supplements for 3 days per anesthesiologist. Medications to discontinue per physician NONE Date to take last dose NONE Please no make-up, nail arabic, hairspray, perfume, deodorant, or body powder the day of surgery.? No jewelry (including any body piercings) or valuables the day of surgery, leave them at home.? Please take a shower or bath the night before, or the morning of, surgery with an antibacterial soap.?GOLD DIAL Wear comfortable, loose fitting clothing.? - Jewelry must be removed prior to entering the operating room.? Rings and piercings that are not removed may be cut off. - The hospital will not accept responsibility for valuables.? - Please leave all valuables, including medications, at home the day of surgery. If you are going home after surgery, a licensed rolloff driver must drive you home.? - NO public transportation without another adult if you receive anesthesia. - We recommend that an adult stay with you for 24 hours following discharge. - We also recommend that you do not drive, make important decision, drink alcoholic beverages, or take any drugs that were not prescribed by your health care provider for at least 24 hours after your discharge time. Follow any additional instructions given to you from your surgeon. Telephone instructions given to ___Patient and asked if any additional questions and then verbalized understanding. Patient advised to call surgeon office or pre surgery nurse liaison [phone] if any additional questions.
--- OUTSIDE RECORDS SUMMARY | 2025-04-08 00:07 | XMS_ITS | Clinical Summary ---
Author Organization [facility] Address [address], [address] [address] Phone Care Team Providers Care Kiln Firer Name Role Phone Rigoberto Jc MD Primary Care Provider + Rigoberto Jc MD Unavailable [phone] Kishore Holm DO Unavailable [phone] Allergies No known active allergies Medications polyethylene glycol (MIRALAX) Powder Use entire 255g bottle with 64oz of clear liquid as directed for colonoscopy prep. 255 g 0 7 Active Family History Medical History Relation Name Comments Heart Disease Father Kidney Disease Mother Leukemia/Lymphoma Other Grandmothe r Relation Name Status Comments Father Mother Other Social History Tobacco Use Types Packs/Day Years Used Date Smoking Tobacco: Never Smokeless Tobacco: Never Alcohol Use Standard Drinks/Week Comments Yes 2 (1 standard drink = 0.6 oz pur e alcohol) Comments Unknown Sex and Gender Information Value Date Recorded Sex Assigned at Not on file Legal Sex Female 2:45 PM CDT Gender Identity Not on file Sexual Orientation Not on file Plan of Treatment Health Maintenance Due Date Last Done Comments Hepatitis C Virus (HCV) Screening 1955 TdaP Immunization 1955 Cologuard 2001 Immunochemical Fecal Occult Blood 2001 Pneumococcal Immunization (5 0+ years) (1 of 1 - PCV) 2006 Zoster Immunization (1 of 2) 2006 Influenza Immunization (#1) 2025 SARS-COV-2 Immunization ( season) 2025 Colonoscopy 11/11/2026 11/11/2016 Colorectal Cancer Screening 11/11/2026 Respiratory Syncytial Virus (RSV) Immunization (Adult) (1 - 1-dose 75+ series) 09/05/2031 Hepatitis B Immunization Aged Out No longer eligible based on patient's age to complete this topic Human Papillomavirus (HPV) Immunization Aged Out No longer eligible b ased on patient's age to complete this topic Meningococcal Immunization (ACWY) Aged Out No longer eligible based on patient's age to complete this topic Rotavirus Immunization Aged Out No lo nger eligible based on patient's age to complete this topic Procedures Procedure Name Priority Date/Time Associated Diagnosis Comments COLONOSCOPY Routine 11/11/2016 from Last 3 Months or Most Recently Relevant to Health Maintenance Results * COLONOSCOPY (11/11/2016) Rigoberto Jc MD PROCEDURE/MINOR SURGICAL ORDERABLES Final Result from Last 3 Months or Most Recently Relevant to Health Maintenance Insurance Care Teams Kiln Firer Relationship Specialty Start Date End Date Rigoberto Jc MD PCP - General Family Medicine 11/11/16 Rigoberto Jc MD Family Medicine 11/11/16 Kishore Holm DO Consulting Physician Gastroenterology 11/11/16
--- OUTSIDE RECORDS SUMMARY | 2025-04-08 00:07 | XMS_ITS | Clinical Summary ---
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 Gender Identity Not on file Sexual Orientation Not on file Last Filed Vital Signs Vital Sign Reading Time Taken Comments Blood Pressure - - Pulse - - Temperature - - Respiratory Rate - - Oxygen Saturation - - Inhaled Oxygen Concentration - - Weight 47.6 kg (105 lb) 04/21/2018 8:17 AM CDT Height 154.9 cm (5' 1) 04/21/2018 8:17 AM CDT Body Mass Index 19.84 04/21/2018 8:17 AM CDT Plan of Treatment Health Maintenance Due Date Last Done Comments Breast Cancer Screening-Mammogram 1955 Colon Cancer Screening-Colonoscopy 1955 Depression Screening 1955 Fall Risk Assessment 1955 Hepatitis C Screening 1955 Osteoporosis Screening-Bone Density Scan 1955 DTaP/Tdap/Td Vaccine (1 - Tdap) 09/05/1967 Hepatitis B Screening 1974 Pneumococcal vaccine 65+ (1 of 1 - PCV) 2006 Zoster Vaccine (2 of 3) 12/27/2015 11/01/2015 Well Visit 65+ 2021 Covid-19 Vaccine (5 - 2024-2 6 season) 2025 12/07/2021, 05/16/2021, 08/11/2020, Additional history exists Influenza Vaccine (#1) 2025 , 11/01/2015, 10/11/2014, Additional history exists Insurance [employer] [facility] Care Teams Inspector Penetrant Relationship Specialty Start Date End Date Rigoberto Jc MD PCP - General Family Medicine 04/10/18 Rigoberto Jc MD 04/10/18
[2025-04-08 11:35] VITALS: BP 127/60; PULSE 66; RESP 16; TEMP 36.2; O2SAT 100
[2025-04-08] MEDS: LACTATED RINGERS 1,000 ML 30 ML IV CONT ×2 (11:50→14:39)
--- NOTE | 2025-04-08 12:55 | WPDANESEPPF ---
Anes - Initial Pre Proc Eval Procedure: Operation Date: 04/08/25 13:30 Proposed Procedures p Excision Left Back Mass - Maco Vazquez DO Date/Time: 04/08/25 12:55 Surgeon: Maco Vazquez DO Pre Op Diagnosis: 6.4 cm Back Mass Patient Data Age: 69 Gender: F Height: 1.55 m Weight: 47 kg Last Vital Signs Temp 36.2 C L 04/08/25 11:35 Pulse 66 04/08/25 11:35 Resp 16 04/08/25 11:35 BP 127/60 04/08/25 11:35 Pulse Ox 100 04/08/25 11:35 O2 Del Method Room Air 04/08/25 11:35 Allergies Allergy/AdvReac Type Severity Reaction Status Date / Time amoxicillin (From Augmentin) Allergy Rash Verified 04/08/25 11:39 clavulanic acid (From Allergy Rash Verified 04/08/25 11:39 Augmentin) Penicillins Allergy Hives Verified 04/08/25 11:39 Home Medications ?Medication ?Instructions ?Recorded ?Confirmed ?Type tpyeyeht-ctg-XD 200 mcg-vit K 100 1 cap PO DAILY 10/16/22 04/08/25 History mcg-lycop 500 gqr-[id number]-G89 capsule (Daily Multivitamin) rosuvastatin 20 mg tablet See Rx Instructions .Route 11/08/24 04/08/25 Rx .COMPLEX #90 tabs Patient hx anesthesia problems: none Family hx anesthesia problems: none Results Review: All pre-operative results and documents have been reviewed as part of the pre-operative evaluation. [facility] Past Medical History Medical History (Updated 04/07/25 @ 13:42 by Nicolas Baltazar DO) PONV (postoperative nausea and vomiting) Hyperlipidemia History of breast cancer (2010) Surgical History Surgical History History of lumpectomy (2010) Family History Family History Mother Renal failure Father Heart disease Diabetes mellitus Social History Social History Smoking status: Never smoker Second hand tobacco smoke exposure: No Alcohol intake: current Substance use: never Substance use type: marijuana Other substance usage details: Gummies to help sleep occasionally Do You Feel Safe in your Home?: Yes Lack of Transportation: No Lack of Food: Never True Current Housing: I Have Housing Concerned About Future Housing: No Difficulty Paying Gas/Electric Bills: No Difficulty Paying for Meds: No Currently Unemployed: No Education: Decline to Answer Difficulty w/ Childcare or Family Care: No Living arrangements: with family Gender identity (if verbalized by the patient): Female Spiritual care concerns: No Anes - Eval Final PreProcedure Day of Procedure 04/08/25 12:55 Patient weight: normal Heart: regular rate and rhythm Lungs: clear to auscultation and normal air movement Airway: Mallampati scale class II Neurological: alert and oriented Last oral intake: >/= 8 hours ASA classification: II Emergent: no Anesthetic plan: proceed Anesthesia type and monitoring: general GIVS and standard monitoring Results Review: All pre-operative results and documents have been reviewed as part of the pre-operative evaluation. Informed Consent: The patient's anesthetic plan and its attendant risks and benefits were discussed with the patient/family/POA. Questions were solicited and answers provided to the satisfaction of the patient/family/POA.
--- NOTE | 2025-04-08 13:18 | WPDHPUPDATE1 ---
History and Physical Update Update Date/Time: 04/08/25 13:18 History and Physical has been reviewed, including an updated exam of the patient. There are NO changes in the patient's condition. Risks, benefits, and alternatives have been discussed and questions answered. Patient agrees to proceed with procedure.
--- NOTE | 2025-04-08 13:18 | PM.IMHP ---
H&P: HPI History of Present Illness Date/Time: 04/08/25 13:18 Chief Complaint: Left back mass Narrative: this is a 69-year-old woman who presents for excision of a left back mass. She denies any changes since last seen in the office. Review of Systems Review of Systems: All systems reviewed & are unremarkable except as noted in HPI and below Constitutional: Constitutional: Denies chills, Denies fever(s), Denies headache(s) and Denies weight loss Eyes: Eyes: Denies change in vision ENT: Denies dizziness, Denies headache(s), Denies neck mass and Denies throat swelling Cardiovascular: Cardiovascular: Denies chest pain, Denies lightheadedness and Denies dyspnea Respiratory: Respiratory: Denies cough, Denies dyspnea and Denies wheezing Gastrointestinal: Gastrointestinal: Denies abdominal pain, Denies change in bowel habits, Denies nausea and Denies vomiting Genitourinary: Genitourinary: Denies hematuria and Denies dysuria Musculoskeletal: Musculoskeletal: Reports as per HPI Integumentary/Breasts: Skin/Breast: Reports as per HPI Neurologic: Denies dizziness and Denies headache(s) Allergic/Immunologic: Allergic/Immunologic: Denies throat swelling and Denies wheezing PMFSH Past Medical History Medical History (Updated 04/07/25 @ 13:42 by Nicolas Baltazar DO) PONV (postoperative nausea and vomiting) Hyperlipidemia History of breast cancer (2010) Surgical History Surgical History History of lumpectomy (2010) Family History Family History Mother Renal failure Father Heart disease Diabetes mellitus Social History Social History Smoking status: Never smoker Second hand tobacco smoke exposure: No Alcohol intake: current Substance use: never Substance use type: marijuana Other substance usage details: Gummies to help sleep occasionally Do You Feel Safe in your Home?: Yes Lack of Transportation: No Lack of Food: Never True Current Housing: I Have Housing Concerned About Future Housing: No Difficulty Paying Gas/Electric Bills: No Difficulty Paying for Meds: No Currently Unemployed: No Education: Decline to Answer Difficulty w/ Childcare or Family Care: No Living arrangements: with family Gender identity (if verbalized by the patient): Female Spiritual care concerns: No Meds Home Medications and Allergies Home Medications ?Medication ?Instructions ?Recorded ?Confirmed ?Type ojpdntxa-oov-TJ 200 mcg-vit K 100 1 cap PO DAILY 10/16/22 04/08/25 History mcg-lycop 500 [id number] capsule (Daily Multivitamin) rosuvastatin 20 mg tablet See Rx Instructions .Route 11/08/24 04/08/25 Rx .COMPLEX #90 tabs Allergies Allergy/AdvReac Type Severity Reaction Status Date / Time amoxicillin (From Augmentin) Allergy Rash Verified 04/08/25 11:39 clavulanic acid (From Allergy Rash Verified 04/08/25 11:39 Augmentin) Penicillins Allergy Hives Verified 04/08/25 11:39 Vital Signs Vital Signs - 24 hr 04/08/25 11:35 Temperature 97.2 F L Pulse Rate 66 Respiratory Rate 16 Blood Pressure 127/60 Pulse Oximetry 100 Oxygen Delivery Room Air Exam Const: General: no acute distress and alert Orientation/consciousness: patient oriented x3 HENMT: Head: normocephalic and atraumatic Ears: hearing grossly normal bilaterally Face/Nose/Sinus: Normal nares present Mouth: Yes Normal oral and palatal mucosa present Eyes: Periorbital: periorbital findings normal Sclera: sclerae normal EOM: EOMs intact bilaterally Neck: Neck: normal visual inspection, no lymphadenopathy and trachea midline Chest: Chest palpation & inspection: normal inspection of the chest Resp: Effort & Inspection: normal respiratory effort Auscultation: clear to auscultation bilaterally Cardio: Jugular venous distension: no JVD Rate: regular rate Rhythm: regular rhythm Heart sounds: S1 normal heart sound present and S2 normal heart sound present Peripheral pulses: Peripheral pulses 2+ throughout GI: Inspection: normal to inspection GI Palp: Yes Soft to palpation, No Tenderness to palpation present (GI), No Guarding due to palpation present (GI) and No Rebound tenderness present Percussion: Yes normal to percussion Auscultation: normal bowel sounds : General: Yes no CVA tenderness Back/Spine/Pelvis: Back: no CVA tenderness Skin: Other: 6.4 cm left back mass consistent with a subcutaneous lipoma Neuro: General: patient oriented x3, no focal motor deficits and CN's II-XI intact bilaterally Cognition (Neuro): normal cognition Speech: normal speech Motor exam (neuro): 5/5 motor strength present throughout Extrem: General: capillary refill normal and no clubbing, cyanosis or edema Assessment and Plan Assessment and plan (1) Mass on back: Code(s): R22.2 - Localized swelling, mass and lump, trunk Status: Acute Assessment and Plan: I have recommended Excision of 6.4cm left back mass. I have discussed the procedure, risks, benefits, and alternatives with the patient. All questions answered. No changes since last seen in office.
[2025-04-08] MEDS: ceFAZolin 2 GM in SODIUM CHLORIDE 0.9% IV 50 ML 100 ML IVPB (13:34)
--- NOTE | 2025-04-08 13:45 | WNDPHOTO ---
PHOTO ONLY - See Nursing Notes and/ or assessments for documentation.
[2025-04-08] MEDS: BUPIVACAINE/EPINEPHRINE 0.5% 50 ML VIAL 30 ML INFILTRATE (13:54)
--- NOTE | 2025-04-08 14:18 | S_PTH ---
PATIENT: Vaughn Plunkett LOC: [facility] U#:[id number] AGE/SX: 69/F ROOM: RE04/08/[address]: Maco Vazquez DO : 1955 BED: DIS: 04/08/2025 SPEC #: [id number] RECD: 04/11/25 07:46 STATUS: HEMANTH REQ #: [id number] ADRIANA: 04/08/25 14:[address]: Maco aVzquez DEPT: [facility] Surgical RECD BY: Char Johnson ENTERED: 04/11/25 07:46 SP TYPE: Surgical OTHR DR: Amisha Silva, MERI Tissues: A - Mass Procedures: Hematoxylin and Eosin Stain Gross and Microscopic Level 3
--- NOTE | 2025-04-08 14:36 | W.PM.PROC2 ---
Procedure Note - Detailed Date of Procedure 04/08/25 Pre-op Diagnosis 6.4 cm Back Mass Post-op Diagnosis Same Procedure Performed excision of 6.4 cm subcutaneous back mass Surgeon Maco Vazquez, DO Anesthesia MAC and Local ( 0.5% bupivacaine with epi) Indications this is a 69-year-old woman who presents with a back mass her left lower back. This had been present for several years but has increased in size and is causing some discomfort. She was found to have a mobile subcutaneous back mass and an ultrasound was also performed which showed evidence of most likely a lipoma. Discussions were made with the patient about treatment options and decision was made to proceed with excision of 6.4 cm back mass. Findings Excision of 6.4 cm left back mass was performed. The patient was found to have a subcutaneous back mass that had consistency of a lipoma. The mass was completely excised and sent to the lab for pathology. Description of Procedure Procedure as well as risks, benefits, and alternatives were discussed with the patient. Written consent was obtained and placed in chart prior to procedure. Patient was brought back to surgical suite. She was placed supine on operating table. Time-out was done to confirm patient and procedure. She was then repositioned to right lateral decubitus position. IV sedation was administered by the anesthesia department. Her left back area was prepped and draped in sterile fashion using chlorhexidine prep. 0.5% bupivacaine with epinephrine was infiltrated locally around the mass. A 7 cm incision was made directly over the mass using a 15 blade scalpel. Electrocautery was used for hemostasis and for careful dissection through the subcutaneous tissue to identify the mass. The mass was then carefully dissected free from the surrounding subcutaneous attachments using electrocautery. The mass went down to the fascia and was somewhat tethered to the fascia but did not appear to go deeper or intramuscular. The mass was carefully excised completely and sent to the lab for pathology. The wound bed was then inspected. Hemostasis was achieved with electrocautery. No other abnormalities were noted. The skin edges were then reapproximated using 3-0 nylon vertical mattress interrupted sutures. Bacitracin ointment was then applied followed by 4 x 4 gauze and Medipore tape. The patient was then awakened from anesthesia and transferred to recovery. Estimated Blood Loss 10 Pathology Yes ( 6.4 cm left back mass) Complications No immediate complications Condition Stable Disposition Same day [facility] Billing Surgery - Charge Forward: Surgery Billing
[2025-04-08 14:39] VITALS: BP 112/52; PULSE 75; O2SAT 99
[2025-04-08 15:00] VITALS: BP 152/72; PULSE 77
[2025-04-08 15:30] VITALS: BP 153/72; PULSE 69
== END 2025-04-08 15:39 | disposition home or self-care (01) ==
PROVIDERS: PCP Nurse Practitioner Family; Visit Provider Surgery
PROC: (CPT 21931; principal; 2025-04-08 13:30)
DX: D17.1 Benign lipomatous neoplasm of skin and subcutaneous tissue of trunk (principal)
CPT/HCPCS: 21931; 88304; J0690; A9270; J2405; J2704; J3010; J7120